=== PATIENT | female | born 1970 | race African-American/Black ===

== ENCOUNTER 2017-01-08 09:48 | Emergency (ER) | payer BC ==
--- NOTE | ~2017-01-08 | CR72 ---
[facility]. [facility] A Service of [facility] & [facility] / [facility] RADIOLOGY TEXT RESULTS PATIENT: SANDEEP KNOWLES LOCATION: SED : 70 UNIT #: [id number] AGE: [address]: Zeb Hale MD SEX: F ORDER DR: [id number] [place] [id number] E MR#: [id number] Acc #: [id number] NAME: SANDEEP KNOWLES : 1970 SEX: F STUDY DATE/TIME: 01/08/2017 10:05 UNIT: SED ROOM: STUDY DESCRIPTION: CR Chest Single View Portable Attending Physician: Zeb Hale M.D. Ordering Physician: Zeb Hlae M.D. Primary Care Physician: No Primary Care Physician MEDICAL IMAGING REPORT This report is preliminary unless electronic signature is present. EXAM Portable chest. INDICATIONS Shortness of breath since last night. COMPARISON Compared with 11/17/2012. FINDINGS The lungs are well expanded. No definite acute infiltrate. Heart size stable. Visualized osseous structures unremarkable. IMPRESSION No active disease. Dictated by... Amarjit Cee M.D. THIS IS AN ELECTRONICALLY VERIFIED REPORT Amarjit Cee M.D. at 01/08/2017 6:05 PM ARS/gz TD: 01/08/2017 12:31 JOB #: [id number] MEDICAL IMAGING REPORT Page 1 of 1
--- NOTE | ~2017-01-08 | EKG ---
PATIENT: SANDEEP KNOWLES UNIT #: [id number] Ventricular Rate: 105 BPM Atrial Rate: 105 BPM P-R Interval: 166 ms QRS Duration: 82 ms Q-T Interval: 350 ms QTC Calculation(Bezet): 462 ms P [place]: 61 degrees Calculated R [place]: -21 degrees Calculated T [place]: 18 degrees Diagnosis Line: Sinus tachycardia with occasional Premature Diagnosis Line: ventricular complexes Diagnosis Line: Low voltage QRS Diagnosis Line: Cannot rule out Anterior infarct , age Diagnosis Line: undetermined Diagnosis Line: Abnormal ECG Diagnosis Line: When compared with ECG of 17-NOV-2012 15:46, Diagnosis Line: Premature ventricular complexes are now Present Diagnosis Line: Confirmed by KRISTOPHER BARNES MD ([id number]) on Diagnosis Line: 01/10/2017 4:45:12 PM INTERPRETING MD: MOLLY SANDERS
[~2017-01-08 09:48] MED LIST: BAYER ASPIRIN325 M1 PO; KEFLEX PO; LIPITOR40 MG PO; LOPRESSOR PO; NO MEDICATIONS; TYLOX 5/500 CAP1 CAP PO; ZESTORETIC 20-1 EAC1 PO
[2017-01-08 10:18] LABS: BASOPHIL# 0.1 X10e3 (0-0.3); BASOPHIL% 0.7 % (0-2.5); EOSINOPHIL# 0.1 X10e3 (0-0.7); EOSINOPHIL% 1.2 % (0.0-7.0); HEMATOCRIT 26.2 % (35.0-45.0); HEMOGLOBIN 7.7 gm/dL (12.0-16.0); LYMPHOCYTE% 40.3 % (17.0-45.0); MEAN CELL VOLUME 59.5 FL (83-96); MEAN CORPUSCULAR HEMOGLOBIN 17.5 PG (28-34); MEAN CORPUSCULAR HGB CONC 29.5 g/dL (30-36); MEAN PLATELET VOLUME 8.7 FL (6.5-11.5); MONOCYTE# 0.8 X10e3 (0-1.0); MONOCYTE% 7.9 % (3.0-12.0); NEUTROPHIL# 4.9 X10e3 (1.5-7.1); NEUTROPHIL% 49.9 % (40-75); PLATELET COUNT 442 X10e3 (140-420); RED CELL DISTRIBUTION WIDTH 20.9 % (11.0-15.5); WHITE BLOOD COUNT 9.9 X10e3 (4.0-10.5)
[2017-01-08 10:19] LABS: POC - CKMB <1.0 ng/mL (0.0-7.9); POC - TROPONIN <0.05 ng/mL (<=0.05)
[2017-01-08 10:20] LABS: DIFF IND YES
[2017-01-08 10:24] LABS: ALBUMIN SERUM 3.7 g/dL (3.5-5.0); BILIRUBIN, DIRECT 0.1 mg/dL (0.0-0.2); BILIRUBIN,INDIRECT 0.5 mg/dL (0.0-0.9); BILIRUBIN,TOTAL 0.6 mg/dL (0.2-2.0); BUN/CREATININE RATIO 11.25; CALCIUM SERUM 8.7 mg/dL (8.4-10.2); CREATININE SERUM 0.8 mg/dL (0.6-1.4); GLOM FILT RATE Estimated 102.6 mL/min (>60); POTASSIUM 3.6 mmol/L (3.5-5.1); PROTEIN TOTAL SERUM 7.6 g/dL (6.0-8.3)
[2017-01-08 10:45] LABS: POLYCHROMASIA SL
[2017-01-08 10:46] LABS: ANISOCYTOSIS MOD; HYPOCHROMIA MOD; MICROCYTOSIS MOD; POIKILOCYTOSIS MOD; TARGET CELLS SL
[2017-01-08 10:47] LABS: OVALOCYTES PRESENT; PLATELET ESTIMATE INCREASED (NORMAL)
== END 2017-01-08 11:41 | disposition home or self-care (01) ==
LOC: SED 09:48
PROVIDERS: Emergency Medicine
DX: I10 Essential (primary) hypertension (principal); R06.02 Shortness of breath; D50.9 Iron deficiency anemia, unspecified; Z79.82 Long term (current) use of aspirin
CPT/HCPCS: 36415; 71010; 80048; 80076; 82553; 84484; 85025; 93005; 99285